=== PATIENT | female | born 1970 | race Caucasian/White ===

== ENCOUNTER 2017-03-18 21:00 | Emergency (ER) | payer BC ==
[~2017-03-18] VITALS: Ht 172.7 cm; Wt 95.7 kg
[2017-03-18 23:00] LABS: BASOPHIL % 0.2 % (0-2); PLATELET COUNT 168 x10^3mcL (130-400); RED CELL DISTRIBUTION WIDTH 12.8 % (11.5-14.5)
[2017-03-18 23:15] LABS: ALKALINE PHOSPHATASE 149 U/L (46-116); ALT/SGPT 342 U/L (14-59); AST/SGOT 529 U/L (15-37); BILIRUBIN TOTAL 0.7 mg/dL (0.20-1.00); CALCIUM 8.1 mg/dL (8.5-10.1); CARBON DIOXIDE 26.7 mmol/L (21-32); CHLORIDE SERUM 100 mmol/L (98-107); GFR1 > 60 mL/min; GLUCOSE SERUM 162 mg/dL (74-106); SODIUM SERUM 134 mmol/L (136-145); TOTAL PROTEIN, SERUM 7.2 g/dL (6.4-8.2)
[2017-03-18 23:16] LABS: POTASSIUM SERUM 2.9 mmol/L (3.5-5.1)
[2017-03-18 23:29] LABS: UA SPECIFIC GRAVITY 1.015 (1.005-1.035); microscopic required? YES; urine erythrocyte 3+ (NEGATIVE)
[2017-03-19 02:25] VITALS: BP 132/63
[2017-03-19] MEDS ORDERED: MASON NATURAL1000 IU (07:41)
== END 2017-03-19 02:00 | disposition home or self-care (01) ==
LOC: ED 21:00
PROVIDERS: Emergency Medicine
DX: B34.9 Viral infection, unspecified (principal); N39.0 Urinary tract infection, site not specified
CPT/HCPCS: 36415; J0696

== ENCOUNTER 2017-03-19 05:06 | Inpatient (IN) | payer BC ==
[~2017-03-19] VITALS: Ht 172.7 cm; Wt 97.8 kg
[2017-03-19 07:11] LABS: UA SPECIFIC GRAVITY 1.025 (1.005-1.035); microscopic required? YES; urine erythrocyte 3+ (NEGATIVE)
[2017-03-19 07:12] LABS: PLATELET COUNT 163 x10^3mcL (130-400); RED CELL DISTRIBUTION WIDTH 13.3 % (11.5-14.5)
[2017-03-19 07:15] LABS: CALCIUM 8.3 mg/dL (8.5-10.1); CARBON DIOXIDE 25.6 mmol/L (21-32); CREATININE SERUM 1.1 mg/dL (0.6-1.0); POTASSIUM SERUM 3.4 mmol/L (3.5-5.1)
[2017-03-19 07:20] LABS: ALBUMIN 3.1 g/dL (3.4-5.0); AMPHETAMINE QUAL UR NONE DETECTED (NEG <=1000); BASOPHIL % 0 % (0-2); BILIRUBIN TOTAL 0.9 mg/dL (0.20-1.00); TOTAL PROTEIN, SERUM 7.5 g/dL (6.4-8.2)
[2017-03-19 07:39] LABS: CK-MB 1.6 ng/mL (0-3.6)
[2017-03-19] MEDS ORDERED: MASON NATURAL1000 IU (07:41)
[2017-03-19 10:34] VITALS: BP 101/61
[2017-03-19 12:11] LABS: T3 TOTAL 0.64 ng/mL
[2017-03-19 12:20] LABS: MAGNESIUM 1.7 mg/dL (1.8-2.4); PHOSPHOROUS 2.2 mg/dL (2.5-4.9)
[2017-03-19 12:41] LABS: FREE T4 1.35 ng/dL (0.76-1.46); FREE THYROXINE INDEX 3.6 ug/dL (1.4-4.5); T4(THYROXINE) 9.2 ug/dL (4.7-13.3)
[2017-03-19 14:15] LABS: CHOLESTEROL/HDL RATIO 2.5
[2017-03-19 18:14] VITALS: BP 105/63
[2017-03-19 22:01] VITALS: BP 119/73
[2017-03-20 05:53] VITALS: BP 106/64
[2017-03-20 06:48] VITALS: Ht 172.7 cm; Wt 97.8 kg
[2017-03-20 10:00] VITALS: BP 113/65
[2017-03-20 17:47] VITALS: BP 112/70
[2017-03-20 22:01] VITALS: BP 113/62
[2017-03-21 06:19] LABS: ALBUMIN 2.4 g/dL (3.4-5.0); ALKALINE PHOSPHATASE 121 U/L (46-116); ALT/SGPT 209 U/L (14-59); AST/SGOT 117 U/L (15-37); BILIRUBIN TOTAL 0.38 mg/dL (0.20-1.00); CARBON DIOXIDE 23.8 mmol/L (21-32); CHLORIDE SERUM 107 mmol/L (98-107); CREATININE SERUM 0.7 mg/dL (0.6-1.0); GFR1 > 60 mL/min; GLUCOSE SERUM 98 mg/dL (74-106); MAGNESIUM 1.9 mg/dL (1.8-2.4); PHOSPHOROUS 3.2 mg/dL (2.5-4.9); POTASSIUM SERUM 3.7 mmol/L (3.5-5.1); SODIUM SERUM 141 mmol/L (136-145); TOTAL PROTEIN, SERUM 6.2 g/dL (6.4-8.2)
[2017-03-21 06:20] VITALS: BP 126/78
[2017-03-21 09:29] VITALS: BP 117/72
[2017-03-21] MEDS ORDERED: LIPI20 PO (14:29)
[2017-03-21] MEDS ORDERED: TYL325 PO (14:30)
[2017-03-21] MEDS ORDERED: CIPRO500 MG PO (14:36)
[2017-03-21] MEDS ORDERED: LAC PO (14:37)
[2017-03-21 15:02] VITALS: BP 117/72
== END 2017-03-21 16:10 | disposition home or self-care (01) | DRG 690 ==
LOC: ED 05:06 → DU 08:14 → MU 03-20 18:50
PROVIDERS: Emergency Medicine; ADMIT Family Medicine
DX: N12 Tubulo-interstitial nephritis, not specified as acute or chronic (principal); E44.0 Moderate protein-calorie malnutrition; N39.0 Urinary tract infection, site not specified; N17.9 Acute kidney failure, unspecified; E87.6 Hypokalemia; E83.51 Hypocalcemia; R74.0 Nonspecific elevation of levels of transaminase and lactic acid dehydrogenase [LDH]; Z68.32 Body mass index [BMI] 32.0-32.9, adult; Z87.891 Personal history of nicotine dependence; R00.0 Tachycardia, unspecified; E83.39 Other disorders of phosphorus metabolism; E83.42 Hypomagnesemia; R73.03 Prediabetes
CPT/HCPCS: 82962; 83880; 84439; A9500; J0696; J1644; J1885; J2270; J2785; J3475; J3490; J7030; Q0092

== ENCOUNTER 2018-12-24 17:49 | Emergency (ER) | payer BC ==
[~2018-12-24] VITALS: Ht 172.7 cm; Wt 93.9 kg
[~2018-12-24 17:49] MED LIST: CIPRO500 MG PO; LAC PO; LIPI20 PO; MASON NATURAL1000 IU; TYL325 PO
[2018-12-24 18:12] VITALS: Ht 172.7 cm; Wt 93.9 kg
[2018-12-24 19:57] VITALS: BP 146/93
== END 2018-12-24 19:58 | disposition home or self-care (01) ==
LOC: ED 17:49
DX: L03.115 Cellulitis of right lower limb (principal)
CPT/HCPCS: J1885